=== PATIENT | female | born 2000 | race Caucasian/White ===

== ENCOUNTER → 2024-11-25 | Outpatient (CLI) | payer OTHER ==
--- NOTE | 2024-11-25 15:11 | US ---
EXAMINATION TYPE: US pelvic complete DATE OF EXAM: 11/25/2024 COMPARISON: NONE CLINICAL INDICATION: Female, 24 years old with history of R10.2 PELVIC; Pelvic pain that changes side s. TECHNIQUE: Transabdominal (TA). Transabdominal grayscale sonographic images of the pelvis were acquired. Doppler imaging: Not performed. FINDINGS: Date of LMP: 10/28/2024, G0 EXAM MEASUREMENTS: Uterus: 8.6 x 4.7 x 3.1 cm Endometrial Stripe: 1.1 cm Right Ovary: 3.2 x 2.5 x 1.7 cm Left Ovary: 3.1 x 2.0 x 1.8 cm 1. Uterus: Anteverted No focal lesions seen 2. Endometrium: wnl for menstrual phase 3. Right Ovary: complex area with peripheral vascularity, corpus luteum? = 1.7 x 1.6 x 1.1 cm 4. Left Ovary: follicles seen 5. Bilateral Adnexa: Trace fluid seen at fundal uterus 6. Posterior cul-de-sac: No free fluid Cervix- wnl Unremarkable anteverted uterus without focal lesion. Normal endometrial thickness for menstrual phase . Corpus luteum within the right ovary. Unremarkable left ovary. Trace fluid adjacent to the uterine fundus. IMPRESSION: No ultrasound evidence for acute pelvic process. [facility], , 11/25/2024 3:09 PM
== END | disposition home or self-care (01) ==
LOC: RADUSWWP 14:32
PROVIDERS: ATTEND Internal Medicine Geriatric Medicine
DX: R10.2 Pelvic and perineal pain (principal)
CPT/HCPCS: 76856